=== PATIENT | male | born 1975 | race Hispanic/Latino ===

== ENCOUNTER 2021-04-20 07:52 | Emergency (ER) | payer BC ==
--- OUTSIDE RECORDS SUMMARY | 2021-04-20 07:54 | XMS REPORT | Continuity of Care Document ---
:1975 Author Organization [facility] t Address [address] [place] [address] Dr. [place] [address] [place] [id number] Care Team Providers Name Role Phone Kayden Attending Clinician Unavailable Problems This patient has no known problems. Allergies, Adverse Reactions, Alerts This patient has no known allergies or adverse reactions. Medications This patient has no known medications. Procedures This patient has no known procedures. Encounters Start End Encounter Admission Attending Care Care Encounter Source Date/Time Date/Time Type Type Clinicians Facility Department ID 2021-03-31 Outpatient PEGGY Monique [facility] [id number] [facility] 13:13:13 Viri [id number] [facility] ent Clinics 2021-03-31 Outpatient PEGGY Monique [facility] [id number] [facility] 12:24:18 Viri [id number] [facility] ent [facility] Results This patient has no known results.
[2021-04-20 08:29] LABS: Hematocrit 44.2 % (39.6-49.0); MPV 7.9 fL (7.6-11.3); RBC Red Blood Cell Count 5.19 M/uL (4.33-5.43)
[2021-04-20 08:30] LABS: Absolute Lymphocytes (CBC) 2.3 K/uL (0.7-4.9); Lymphocytes % 32.1 % (15.3-44.8)
[2021-04-20 08:36] LABS: Protime INR 1.03
[2021-04-20 08:48] LABS: Bilirubin Direct 0.1 mg/dL (0-0.2); Bilirubin Total 0.6 mg/dL (0.2-1.0); Magnesium 2.3 mg/dL (1.8-2.4); Potassium 3.7 mmol/L (3.5-5.1); Protein, Total 8.3 g/dL (6.4-8.2)
--- NOTE | 2021-04-20 09:06 | RAD REPORT ---
EXAM DESCRIPTION: CT - Head Brain Wo Cont - 04/20/2021 8:43 am CLINICAL HISTORY: elevated blood pressure;Headache COMPARISON: No comparisons TECHNIQUE: Axial 5 mm thick images of the head were obtained without IV contrast. All CT scans are performed using dose optimization technique as appropriate and may include automated exposure control or mA/KV adjustment according to patient size. FINDINGS: No intracranial hemorrhage, mass, edema or shift of mid-line structures. No acute infarcti on changes seen. No abnormal extra-axial fluid collections. Ventricles are normal. Mastoid air cells and visualized portions of the paranasal sinuses are clear. No acute bony findings. IMPRESSION: Negative non-contrast CT head examination.
[2021-04-20] MEDS ORDERED: ASPIRIN 81 MG CHEWABLE TABLET ONE (09:18)
--- NOTE | 2021-04-20 09:33 | EDPHYS ---
Physician Documentation [facility] Name: Brodie Jenkins Age: 45 yrs Sex: Male : 1975 Arrival Date: 04/20/2021 Time: 07:55 Bed 7 Private MD: ED Physician Cecilio Villatoro HPI: 04/20 08:20 This 45 yrs old Male presents to ER via Ambulatory with complaints of cp Headache, Chest Tingling. 08:20 The patient complains of pain to the top of head and forehead. The patient describes cp the headache as aching. 08:20 Onset: The symptoms/episode began/occurred 3 day(s) ago. cp 08:20 Associated signs and symptoms: Pertinent positives: chest tingling, Pertinent cp negatives: altered mental status, dizziness, fever, neck stiffness, paresthesias, sinus congestion, sinus tenderness, vision changes, vomiting, weakness. Severity of symptoms: in the emergency department the pain is unchanged, despite home interventions. 08:20 Patient thinks symptoms due to him recently discontinuing energy and work-out drinks. cp Denies any chest pain. Denies shortness of breath. Historical: - Allergies: 08:03 No Known Allergies; ap3 - Home Meds: 08:03 None [Active]; ap3 - PMHx: 08:03 None; ap3 - PSHx: 08:03 None; ap3 - Immunization history:: Client reports receiving the 2nd dose of the Covid vaccine, Flu vaccine is up to date. - Social history:: Smoking status: Patient denies any tobacco usage or history of. ROS: 08:20 Constitutional: Negative for body aches, chills, fever, poor PO intake. cp 08:20 Eyes: Negative for injury, pain, redness, and discharge. cp 08:20 Neck: Negative for pain with movement, pain at rest, stiffness. 08:20 Cardiovascular: Negative for chest pain, edema, palpitations. 08:20 Respiratory: Negative for cough, shortness of breath, wheezing. 08:20 Abdomen/GI: Negative for abdominal pain, nausea, vomiting, and diarrhea. 08:20 Neuro: Positive for headache, Negative for altered mental status, dizziness, numbness, syncope, weakness. 08:20 All other systems are negative. Exam: 08:17 ECG was reviewed by the Attending Physician. cp 08:25 Constitutional: The patient appears in no acute distress, alert, awake, cp non-diaphoretic, non-toxic, well developed, well nourished. 08:25 Head/Face: Normocephalic, atraumatic. cp 08:25 Eyes: Periorbital structures: appear normal, Pupils: equal, round, and reactive to light and accomodation, Extraocular movements: intact throughout, Conjunctiva: normal, no exudate, no injection, Lids and lashes: appear normal, bilaterally. 08:25 ENT: External ear(s): are unremarkable, Nose: is normal, Mouth: Lips: moist, Oral mucosa: pink and intact, moist, Posterior pharynx: Airway: no evidence of obstruction, patent. 08:25 Neck: ROM/movement: is normal, is supple, without pain, no range of motions limitations. 08:25 Chest/axilla: Inspection: normal, Palpation: is normal, no crepitus, no tenderness. 08:25 Cardiovascular: Rate: normal, Rhythm: regular, Heart sounds: murmur, not appreciated, Edema: is not appreciated, JVD: is not appreciated. 08:25 Respiratory: the patient does not display signs of respiratory distress, Respirations: normal, no use of accessory muscles, no retractions, labored breathing, is not present, Breath sounds: are clear throughout, no decreased breath sounds, no stridor, no wheezing. 08:25 Abdomen/GI: Inspection: abdomen appears normal, Bowel sounds: active, all quadrants, Palpation: abdomen is soft and non-tender, in all quadrants. 08:25 Back: pain, is absent, ROM is normal. 08:25 Neuro: Orientation: to person, place \T\ time. Mentation: is normal, Motor: moves all fours, strength is normal, Sensation: is normal. Vital Signs: 08:01 BP 178 / 97; Pulse 78; Resp 17; Temp 97.9; Pulse Ox 100% ; Weight 95.25 kg; Height 5 ap3 ft. 9 in. (175.26 cm); 09:18 BP 134 / 70; Pulse 66; Resp 15; Pulse Ox 98% on R/A; jl7 08:01 Body Mass Index 31.01 (95.25 kg, 175.26 cm) ap3 MDM: 08:16 Patient medically screened. cp 09:31 Data reviewed: vital signs, nurses notes, lab test result(s), EKG, radiologic studies, cp CT scan, plain films. 09:31 Differential diagnosis: intracerebral hemorrhage, migraine, subarachnoid bleed, tension cp headache, cardiac arrythmia, electrolyte abnormality. Test interpretation: by ED physician or midlevel provider: ECG, plain radiologic studies. Counseling: I had a detailed discussion with the patient and/or guardian regarding: the historical points, exam findings, and any diagnostic results supporting the discharge/admit diagnosis, lab results, radiology results, the need for outpatient follow up, a family practitioner, to return to the emergency department if symptoms worsen or persist or if there are any questions or concerns that arise at home. 04/20 08:17 Order name: Basic Metabolic Panel; Complete Time: 08:50 04/20 08:50 Interpretation: Normal except: GLUC 110; BUN 20; GFR 66. 04/20 08:17 Order name: CBC with Diff; Complete Time: 08:50 04/20 09:21 Interpretation: Reviewed. 04/20 08:17 Order name: LFT's; Complete Time: 08:50 04/20 08:51 Interpretation: Normal except: TP 8.3; GLOB 4.3; A/G 0.9. 04/20 08:17 Order name: Magnesium; Complete Time: 08:50 04/20 08:17 Order name: NT PRO-BNP; Complete Time: 08:50 04/20 08:17 Order name: PT-INR; Complete Time: 08:50 04/20 08:17 Order name: Troponin HS; Complete Time: 08:50 04/20 08:17 Order name: EKG; Complete Time: 08:17 04/20 08:17 Order name: Cardiac monitoring; Complete Time: 08:41 04/20 08:17 Order name: EKG - Nurse/Tech; Complete Time: 08:18 04/20 08:17 Order name: IV Saline Lock; Complete Time: 08:18 04/20 08:17 Order name: Labs collected and sent; Complete Time: 08:18 04/20 08:17 Order name: CT Head Brain wo Cont; Complete Time: 09:08 04/20 09:08 Interpretation: Report reviewed. 04/20 08:17 Order name: O2 Per Protocol; Complete Time: 08:41 cp 04/20 08:17 Order name: O2 Sat Monitoring; Complete Time: 08:41 cp EC:17 Rate is 76 beats/min. Rhythm is regular. [place] interval is normal. QRS interval is cp prolonged at 108 msec. QT interval is normal. T waves are Inverted in lead aVR. Interpreted by me. Reviewed by me. Administered Medications: 09:18 Drug: Aspirin Chewable Tablet 81 mg Route: PO; jl7 Disposition: 11:40 Co-signature as Attending Physician, Cecilio Villatoro MD I agree with the assessment and rn plan of care. Attestation: The patient's history, exam findings, diagnostics, and a summary of any interventions or procedures was reviewed in detail with Alex WESLEY. Disposition Summary: 04/20/21 09:32 Discharge Ordered Location: Home cp Problem: new cp Symptoms: have improved cp Condition: Stable cp Diagnosis - Headache cp - Elevated blood-pressure reading, without diagnosis of hypertension cp Followup: cp - With: Private Physician - When: 2 - 3 days - Reason: Recheck today's complaints Discharge Instructions: - Discharge Summary Sheet cp - General Headache Without Cause cp - How to Take Your Blood Pressure, [id number] cp - Aspirin and Your Heart cp - Form - Blood Pressure Record Sheet cp - Form - Excuse from Work, School, or Physical Activity cp Forms: - Medication Reconciliation Form cp - Thank You Letter cp - Antibiotic Education cp - Prescription Opioid Use cp - Work release form ic1 Signatures: Dispatcher [employer] Cecilio Serrano MD MD rn Page, Corey, PA PA cp Mercedes Holm RN RN jl7 Yazmin Kang RN RN ap3 Corrections: (The following items were deleted from the chart) 08:04 08:03 Allergies: No Known Allergies; ap3 ap3 08:04 08:03 Home Meds: None; ap3 ap3 08:04 08:03 PMHx: None; ap3 ap3 08:04 08:03 PSHx: None; ap3 ap3 08:04 08:03 PSHx: None; ap3 ap3
--- NOTE | 2021-04-20 09:33 | ER ---
Nurse's Notes [facility] Name: Brodie Jenkins Age: 45 yrs Sex: Male : 1975 Arrival Date: 04/20/2021 Time: 07:55 Bed 7 Private MD: Diagnosis: Headache;Elevated blood-pressure reading, without diagnosis of hypertension Presentation: 04/20 08:01 Chief complaint: Patient states: he has been having a headache, with intermittent left ap3 sided chest tingling since Monday04/17/2021. Patient reports just generally not feeling well, and has a suspicion he has high blood pressure. Patient also reports drinking energy drinks in the mornings, and pre-workout in the evening everyday since he was 19, however patient reports stopping "cold turkey" a few days prior to feeling this way. Coronavirus screen: At this time, the client does not indicate any symptoms associated with coronavirus-19. Ebola Screen: No symptoms or risks identified at this time. Initial Sepsis Screen: Does the patient meet any 2 criteria? No. Patient's initial sepsis screen is negative. Does the patient have a suspected source of infection? No. Patient's initial sepsis screen is negative. Risk Assessment: Do you want to hurt yourself or someone else? Patient reports no desire to harm self or others. Onset of symptoms was April 17, 2021. 08:01 Method Of Arrival: Ambulatory ap3 08:01 Acuity: DON 3 ap3 Triage Assessment: 08:04 Headache History: The patient has had previous headaches and this one is similar to ap3 previous episodes, and this one is less severe than previous episodes. General: Appears in no apparent distress. comfortable, Behavior is calm, cooperative, appropriate for age. Pain: Complains of pain in headache, left sided chest tingling Pain currently is 0 out of 10 on a pain scale. Pain began gradually, 2-3 days ago. Also complains of nausea, shortness of breath, shortness of breath accompanied the similar feelings on Monday04/17/2021. Neuro: Level of Consciousness is awake, alert, obeys commands, Oriented to person, place, time, situation, Appropriate for age Moves all extremities. Gait is steady, Speech is normal. Cardiovascular: Reports chest tingling Patient's skin is warm and dry. Respiratory: Airway is patent Respiratory effort is even, unlabored, Respiratory pattern is regular, symmetrical. Historical: - Allergies: 08:03 No Known Allergies; ap3 - Home Meds: 08:03 None [Active]; ap3 - PMHx: 08:03 None; ap3 - PSHx: 08:03 None; ap3 - Immunization history:: Client reports receiving the 2nd dose of the Covid vaccine, Flu vaccine is up to date. - Social history:: Smoking status: Patient denies any tobacco usage or history of. Screenin:06 Abuse screen: Denies threats or abuse. Nutritional screening: No deficits noted. ap3 Tuberculosis screening: No symptoms or risk factors identified. Fall Risk None identified. Assessment: 08:16 General: Appears in no apparent distress. comfortable, Behavior is calm, cooperative, ic1 appropriate for age. Pain: Complains of pain in chest. Neuro: Level of Consciousness is awake, alert, obeys commands, Oriented to person, place, time, situation. Cardiovascular: Reports chest pain, shortness of breath. Respiratory: Reports shortness of breath. GI: No deficits noted. : No deficits noted. EENT: No deficits noted. Derm: No deficits noted. Musculoskeletal: No deficits noted. Vital Signs: 08:01 BP 178 / 97; Pulse 78; Resp 17; Temp 97.9; Pulse Ox 100% ; Weight 95.25 kg; Height 5 ap3 ft. 9 in. (175.26 cm); 09:18 BP 134 / 70; Pulse 66; Resp 15; Pulse Ox 98% on R/A; jl7 08:01 Body Mass Index 31.01 (95.25 kg, 175.26 cm) ap3 ED Course: 07:55 Patient arrived in ED. rg4 08:03 Triage completed. ap3 08:06 Arm band placed on right wrist. ap3 08:07 Patient has correct armband on for positive identification. Placed in gown. Bed in low ap3 position. Call light in reach. Side rails up X 1. Adult w/ patient. security monitor on. Pulse ox on. NIBP on. Door closed. Noise minimized. 08:10 Alex Mcqueen PA is PHCP. cp 08:10 Cecilio Villatoro MD is Attending Physician. cp 08:14 EKG done, by ED staff, reviewed by Alex WESLEY. ap3 08:16 No provider procedures requiring assistance completed. Inserted saline lock: 20 gauge ic1 in left antecubital area, using aseptic technique. Blood collected. 08:43 CT Head Brain wo Cont In Process Unspecified. EDMS 09:43 IV discontinued, intact, bleeding controlled, No redness/swelling at site. Pressure ic1 dressing applied. Administered Medications: 09:18 Drug: Aspirin Chewable Tablet 81 mg Route: PO; jl7 Outcome: 09:32 Discharge ordered by . cp 09:43 Discharged to home ambulatory, with significant other. ic1 09:43 Condition: stable 09:43 Discharge instructions given to patient, Instructed on discharge instructions, follow up and referral plans. Demonstrated understanding of instructions, follow-up care. 09:47 Patient left the ED. ic1 Signatures: Dispatcher [employer] EDMS Alex Mcqueen PA PA cp Garcia, Rubi rg4 Mercedes Holm RN RN jl7 Yazmin Kang RN RN ap3 Oneida Neal RN RN ic1 Corrections: (The following items were deleted from the chart) 08:04 08:03 Allergies: No Known Allergies; ap3 ap3 08:04 08:03 Home Meds: None; ap3 ap3 08:04 08:03 PMHx: None; ap3 ap3 08:04 08:03 PSHx: None; ap3 ap3 08:04 08:03 PSHx: None; ap3 ap3
[2021-04-20 10:01] VITALS: TEMP 97.9
[2021-04-20 10:03] VITALS: BP 134/70; O2SAT 98
--- NOTE | 2021-04-21 11:17 | EKG ---
Test Date: 2021-04-20 Test Time: 08:14:46 Foundry Technician: ALP MEASUREMENT RESULTS: Intervals: Rate: 76 CO: 176 QRSD: 108 QT: 354 QTc: 398 [place]: P: 36 CO: 176 QRS: -4 T: 16 INTERPRETIVE STATEMENTS: Normal sinus rhythm Normal ECG No previous ECG available for comparison Electronically Signed On 04-21-21 11:13:55 THEATER EDUCATION TEACHER by Zeke Martinez
== END 2021-04-20 09:47 | disposition home or self-care (01) ==
LOC: ER 07:52
DX: R51.9 Headache, unspecified (principal); R03.0 Elevated blood-pressure reading, without diagnosis of hypertension
CPT/HCPCS: 36415; 70450; 80048; 80076; 83735; 83880; 84484; 85025; 85610; 93005; 99284

== ENCOUNTER 2022-10-11 15:56 | Emergency (ER) | payer BC ==
--- OUTSIDE RECORDS SUMMARY | 2022-10-11 15:59 | XMS REPORT | Continuity of Care Document ---
:1975 Author Organization [facility] t Address [address] [place] [address] Care Team Providers Name Role Phone Kayden Viri Attending Clinician Unavailable KEANUMonday Attending Clinician Unavailable IGLESIA LEDEZMA Attending Clinician Unavailable Iglesia Ledezma DO Attending Clinician Payers Payer Name Policy Type Policy Number Effective Date Expiration Date S [facility] 2 [id number] 2021 00:00:00 Problems This patient has no known problems. Allergies, Adverse Reactions, Alerts This patient has no known allergies or adverse reactions. Medications This patient has no known medications. Procedures This patient has no known procedures. Encounters Start End Encounter Admission Attending Care Care Encounter Source Date/Time Date/Time Type Type Clinicians Facility Department ID 2022-10-10 [facility] [id number] 08:17:00 Viri [id number] [facility] 2021-03-31 [facility] [id number] Common 13:13:13 Viri [id number] [facility] 2021-03-31 Outpatient PEGGY Monique [facility] [id number] Common 12:24:18 Viri [id number] [facility] 2022-05-06 2022-05-06 Outpatient GARRY BEDOYA [id number] Garry 11:15:00 11:15:00 MONDAY Seybol d 2022-05-02 2022-05-02 Outpatient GARRY LEDEZMA [id number] Garry 16:30:00 16:30:00 IGLESIA Barajasybol maxime 2022-01-07 2022-01-07 Outpatient GARRY LEDEZMA [id number] Garry 09:00:00 09:00:00 IGLESIA Seybol d 2021-10-11 2021-10-11 Office Mikael Ledezma [id number] Garry 14:45:00 15:15:00 Visit Iglesia Pena [id number] [place] [id number] Results This patient has no known results.
[2022-10-11 17:13] LABS: Absolute Lymphocytes (CBC) 1.8 K/uL (0.7-4.9); Hematocrit 42.4 % (39.6-49.0); Lymphocytes % 22.5 % (15.3-44.8); MPV 7.6 fL (7.6-11.3); Platelets 277 thou/uL (152-406); RBC Red Blood Cell Count 4.99 M/uL (4.33-5.43)
--- NOTE | 2022-10-11 17:14 | RAD REPORT ---
EXAM DESCRIPTION: Gladis Single View10/11/2022 4:51 pm CLINICAL HISTORY: CHEST PAIN COMPARISON: No comparisons TECHNIQUE: Portable AP view of the chest. FINDINGS: The lungs are clear. No pneumothorax or effusion. The cardiomediastinal contours are unrem arkable. IMPRESSION: No acute cardiopulmonary process.
[2022-10-11 17:35] LABS: Potassium 3.8 mEq/L (3.5-5.1); Troponin High Sensitivity 4.7 pg/mL (<58.9)
--- NOTE | 2022-10-11 17:56 | RAD REPORT ---
EXAM DESCRIPTION: CT - Angio Aorta For Dissection - 10/11/2022 5:20 pm CLINICAL HISTORY: chest pain, HTN, radiates to left arm COMPARISON: Chest Single View dated 10/11/2022 TECHNIQUE: Dynamically enhanced 3 mm thick images of the chest, abdomen, and pelvis were obtained du ring administration of approximately 100mL Isovue 370 IV contrast. Sagittal and coronal reconstructio ns as well as maximal intensity projection reconstruction were generated and reviewed per an aortic a ngiography protocol. All CT scans are performed using dose optimization technique as appropriate and may include automated exposure control or mA/KV adjustment according to patient size. FINDINGS: Aorta is normal in diameter with no dissection or other acute aortic findings. Reconstruct ion images show no significant findings. Pulmonary arteries are normal as well. No mass or infiltrate in the lung parenchyma. No pleural thickening, pleural effusion or pneumothorax . No abnormal mediastinal or hilar mass or lymphadenopathy seen. No chest wall mass or abnormal axillar y lymphadenopathy. Celiac, SMA and renal arteries show no suspicious findings. Diffuse hepatic parenchymal hypoattenuation suggesting steatosis. Other solid organs show no suspicio us abnormality. No mass or abnormal lymphadenopathy. IMPRESSION: No acute abnormalities on CT angiogram of the aorta. Diffuse hepatic steatosis. No other significant findings on chest, abdomen and pelvis examination.
--- NOTE | 2022-10-11 20:07 | EDPHYS ---
Physician Documentation [facility] Name: Brodie Jenkins Age: 46 yrs Sex: Male : 1975 Arrival Date: 10/11/2022 Time: 15:56 Bed 7 Private MD: ED Physician Cecilio Villatoro HPI: 10/11 16:27 This 46 yrs old Male presents to ER via EMS with complaints of Chest Pain. rn 16:27 The patient or guardian reports chest pain that is located primarily in the anterior rn chest wall, sternal. Onset: just prior to arrival. The pain does not radiate. Associated signs and symptoms: Pertinent negatives: abdominal pain, cough, diaphoresis, dizziness, lower extremity swelling, palpitations, shortness of breath, syncope, vomiting. The chest pain is described as sharp, stabbing. Duration: The patient or guardian reports a single episode, that is now resolved. Modifying factors: The symptoms are alleviated by nothing. the symptoms are aggravated by nothing. Severity of pain: At its worst the pain was moderate in the emergency department the pain has improved. The patient has not experienced similar symptoms in the past. Pt reports peristernal chest pain, sharp/stabbing, not worse with breathing. No fever/cough/trauma/abd pain/diaphoresis. No recent surgery. No hx of dvt/PE. . Historical: - Allergies: 16:02 No Known Allergies; me1 - Home Meds: 16:02 None [Active]; me1 - PMHx: 16:02 None; me1 - PSHx: 16:02 right index finger; me1 - Immunization history:: Adult Immunizations up to date. - Social history:: Smoking status: Patient denies any tobacco usage or history of. - Family history:: not pertinent. - Hospitalizations: : No recent hospitalization is reported. ROS: 16:27 Constitutional: Negative for fever, chills, and weight loss, Cardiovascular: Negative rn for palpitations, and edema, Respiratory: Negative for shortness of breath, cough, wheezing, and pleuritic chest pain, Abdomen/GI: Negative for abdominal pain, nausea, vomiting, diarrhea, and constipation, Back: Negative for injury and pain, MS/Extremity: Negative for injury and deformity, Skin: Negative for injury, rash, and discoloration, Neuro: Negative for headache, weakness, numbness, tingling, and seizure. Exam: 16:27 Constitutional: This is a well developed, well nourished patient who is awake, alert, rn and in no acute distress. Head/Face: Normocephalic, atraumatic. Chest/axilla: Normal chest wall appearance and motion. Nontender with no deformity. No lesions. Cardiovascular: Regular rate and rhythm. No pulse deficits. Respiratory: No increased work of breathing, no retractions or nasal flaring. Abdomen/GI: Soft, non-tender Skin: Warm, dry MS/ Extremity: Pulses equal, no cyanosis. Neuro: Awake and alert, GCS 15 Vital Signs: 16:00 BP 179 / 103; Pulse 86; Resp 16; Temp 98.6(O); Pulse Ox 95% on R/A; Weight 97.52 kg; me1 Height 5 ft. 9 in. ; Pain 0/10; 17:01 BP 160 / 104; Pulse 78; Resp 18; Pulse Ox 98% on R/A; ph 17:57 BP 166 / 97; Pulse 76; Resp 18; Pulse Ox 98% on R/A; ld1 18:58 BP 164 / 101; Pulse 74; Resp 18; Pulse Ox 96% on R/A; ld1 20:00 BP 181 / 101; Pulse 73; Resp 16; Pulse Ox 98% on R/A; jb4 16:00 Body Mass Index 31.75 (97.52 kg, 175.26 cm) me1 16:00 Pain Scale: Adult me1 MDM: 16:03 Patient medically screened. rn 17:57 Differential diagnosis: acute myocardial infarction, acute pericarditis, coronary rn artery disease costochondritis, esophagitis, gastritis, pleurisy, pneumothorax, thoracic aortic disection. Data reviewed: vital signs, nurses notes, lab test result(s), EKG, radiologic studies, CT scan, plain films, and as a result, I will discharge patient. Counseling: I had a detailed discussion with the patient and/or guardian regarding: the historical points, exam findings, and any diagnostic results supporting the discharge/admit diagnosis, lab results, radiology results, the need for outpatient follow up, to return to the emergency department if symptoms worsen or persist or if there are any questions or concerns that arise at home. Special discussion: Based on the patient's history, exam, and Dx evaluation, there is no indication for emergent intervention or inpatient Tx. It is understood by the patient/guardian that if the Sx's persist or worsen they need to return immediately for re-evaluation. I discussed with the patient/guardian in detail that at this point there is no indication for admission to the hospital. It is understood, however, that if the symptoms persist or worsen the patient needs to return immediately for re-evaluation. 20:05 Differential diagnosis: viral Infection, bacterial infection, bronchitis, pneumonia cp acute DE, AAA. 20:05 I considered the following discharge prescriptions or medication management in the cp emergency department Medications were administered in the Emergency Department. See MAR. 20:05 ED course: repeat troponin negative. VS noted with elevated blood pressure. Will cp discharge to home for continued monitoring. 10/11 16:03 Order name: Basic Metabolic Panel; Complete Time: 17:43 rn 10/11 16:03 Order name: CBC with Diff; Complete Time: 17:43 rn 10/11 16:03 Order name: NT PRO-BNP; Complete Time: 17:43 rn 10/11 16:03 Order name: Troponin HS; Complete Time: 17:43 rn 10/11 17:58 Order name: Troponin High Sensitivity; Complete Time: 20:05 rn 10/11 17:58 Order name: CREATININE WHOLE BLOOD; Complete Time: 20:05 EDMS 10/11 16:03 Order name: XRAY Chest (1 view); Complete Time: 17:26 rn 10/11 16:12 Order name: CT Aorta for Dissection; Complete Time: 17:57 rn 10/11 16:03 Order name: EKG; Complete Time: 16:04 rn 10/11 16:03 Order name: Cardiac monitoring; Complete Time: 16: rn 10/11 16:03 Order name: EKG - Nurse/Tech; Complete Time: 16:19 rn 10/11 16:03 Order name: IV Saline Lock; Complete Time: 16:19 rn 10/11 16:03 Order name: Labs collected and sent; Complete Time: 16:19 rn 10/11 16:03 Order name: O2 Per Protocol; Complete Time: 16:07 rn 10/11 16:03 Order name: O2 Sat Monitoring; Complete Time: 16: rn 10/11 16:35 Order name: Labs - recollect needed: recollect green and lavender top; Complete Time: bd 17:09 Administered Medications: No medications were administered Disposition Summary: 10/11/22 20:06 Discharge Ordered Location: Home cp Problem: new cp Symptoms: have improved cp Condition: Stable cp Diagnosis - Chest pain, unspecified cp - Elevated blood-pressure reading, without diagnosis of hypertension cp Followup: cp - With: Sebas Ivan MD - When: 2 - 3 days - Reason: Recheck today's complaints Discharge Instructions: - Discharge Summary Sheet cp - Nonspecific Chest Pain, Adult cp - Aspirin and Your Heart cp - Form - Blood Pressure Record Sheet cp - How to Take Your Blood Pressure cp Forms: - Medication Reconciliation Form cp - Thank You Letter cp - Antibiotic Education cp - Prescription Opioid Use cp - Patient Portal Instructions cp Signatures: Dispatcher [employer] Dasha Zimmerman Roman, MD MD rn Alex Mcqueen PA PA cp Flavia Adamson, RN RN me1
--- NOTE | 2022-10-11 20:07 | ER ---
Nurse's Notes [facility] Name: Brodie Jenkins Age: 46 yrs Sex: Male : 1975 Arrival Date: 10/11/2022 Time: 15:56 Bed 7 Private MD: Diagnosis: Chest pain, unspecified;Elevated blood-pressure reading, without diagnosis of hypertension Presentation: 10/11 16:00 Chief complaint: Patient states: chest pain. Coronavirus screen: Vaccine status: me1 Patient reports receiving the 2nd dose of the covid vaccine. At this time, the client does not indicate any symptoms associated with coronavirus-19. Ebola Screen: No symptoms or risks identified at this time. Initial Sepsis Screen: Does the patient meet any 2 criteria? No. Patient's initial sepsis screen is negative. Does the patient have a suspected source of infection? No. Patient's initial sepsis screen is negative. Risk Assessment: Do you want to hurt yourself or someone else? Patient reports no desire to harm self or others. Onset of symptoms was October 11, 2022. 16:00 Method Of Arrival: EMS: [facility] [place] 16:00 Acuity: DON 3 me1 Triage Assessment: 16:02 General: Appears comfortable, well groomed, well developed, well nourished, Behavior is me1 calm, cooperative, appropriate for age, Reports chest pain that was sharp, midsternal, while sitting at his desk working. Chest pain did not radiate. Chest pain has resolved at this time. Denies sob. Denies fever, feeling ill, fatigue, chills. Pain: Denies pain. Pain: Complains of pain in chest Pain does not radiate. Pain at worst was 4 out of 10 on a pain scale. Quality of pain is described as sharp, Pain began suddenly, Is intermittent. Neuro: Level of Consciousness is awake, alert, obeys commands, Oriented to person, place, time, situation, Appropriate for age. Cardiovascular: Capillary refill < 3 seconds Patient's skin is warm and dry. Respiratory: Respiratory effort is even, unlabored, Respiratory pattern is regular, symmetrical. Historical: - Allergies: 16:02 No Known Allergies; me1 - Home Meds: 16:02 None [Active]; me1 - PMHx: 16:02 None; me1 - PSHx: 16:02 right index finger; me1 - Immunization history:: Adult Immunizations up to date. - Social history:: Smoking status: Patient denies any tobacco usage or history of. - Family history:: not pertinent. - Hospitalizations: : No recent hospitalization is reported. Screenin:05 [facility] ED Fall Risk Assessment (Adult) Score/Fall Risk Level 0 - 2 = Low Risk. Abuse me1 screen: Denies threats or abuse. Nutritional screening: No deficits noted. Tuberculosis screening: No symptoms or risk factors identified. Assessment: 16:05 General: See triage assessment. . Pain: Denies pain. me1 17:57 Reassessment: Patient appears in no apparent distress at this time. No changes from ld1 previously documented assessment. Patient and/or family updated on plan of care and expected duration. Pain level reassessed. Patient is alert, oriented x 3, equal unlabored respirations, skin warm/dry/pink. 18:58 Reassessment: Patient appears in no apparent distress at this time. No changes from ld1 previously documented assessment. Patient and/or family updated on plan of care and expected duration. Pain level reassessed. Patient is alert, oriented x 3, equal unlabored respirations, skin warm/dry/pink. 19:15 Reassessment: Patient appears in no apparent distress at this time. Patient and/or jb4 family updated on plan of care and expected duration. Pain level reassessed. Patient is alert, oriented x 3, equal unlabored respirations, skin warm/dry/pink. 20:20 Reassessment: Patient appears in no apparent distress at this time. Patient and/or jb4 family updated on plan of care and expected duration. Pain level reassessed. Patient is alert, oriented x 3, equal unlabored respirations, skin warm/dry/pink. Vital Signs: 16:00 BP 179 / 103; Pulse 86; Resp 16; Temp 98.6(O); Pulse Ox 95% on R/A; Weight 97.52 kg; me1 Height 5 ft. 9 in. ; Pain 0/10; 17:01 BP 160 / 104; Pulse 78; Resp 18; Pulse Ox 98% on R/A; ph 17:57 BP 166 / 97; Pulse 76; Resp 18; Pulse Ox 98% on R/A; ld1 18:58 BP 164 / 101; Pulse 74; Resp 18; Pulse Ox 96% on R/A; ld1 20:00 BP 181 / 101; Pulse 73; Resp 16; Pulse Ox 98% on R/A; jb4 16:00 Body Mass Index 31.75 (97.52 kg, 175.26 cm) me1 16:00 Pain Scale: Adult me1 ED Course: 15:57 Patient arrived in ED. ld1 16:02 Triage completed. me1 16:02 Arm band placed on Patient placed in an exam room. me1 16:03 Cecilio Villatoro MD is Attending Physician. rn 16:05 Patient has correct armband on for positive identification. Bed in low position. Call me1 light in reach. Side rails up X 1. Provided Education on: POC. Verbalized understanding. . Client placed on continuous cardiac and pulse oximetry monitoring. NIBP monitoring applied. behavioral health associate on. 16:05 No provider procedures requiring assistance completed. Patient maintains SpO2 me1 saturation greater than 95% on room air. 16:22 Flavia Adamson RN is Primary Nurse. me1 16:22 Inserted saline lock: 20 gauge in right antecubital area, using aseptic technique. me1 16:53 XRAY Chest (1 view) In Process Unspecified. EDMS 17:09 Inserted saline lock: 20 gauge in left antecubital area, using aseptic technique. Blood ld1 collected. 17:22 CT Aorta for Dissection In Process Unspecified. EDMS 18:04 Alex Mcqueen PA is PHCP. cp 20:06 Sebas Ivan MD is Referral Physician. cp 20:21 IV discontinued, intact, bleeding controlled, No redness/swelling at site. Pressure jb4 dressing applied. Administered Medications: No medications were administered Medication: 16:05 VIS not applicable for this client. me1 Outcome: 20:06 Discharge ordered by . cp 20:21 Discharged to home ambulatory, with friend. jb4 20:21 Condition: stable 20:21 Discharge instructions given to patient, Instructed on discharge instructions, follow up and referral plans. Demonstrated understanding of instructions, follow-up care. 20:22 Patient left the ED. jb4 Signatures: Dispatcher [employer] EDWV Cecilio Villatoro MD MD rn Hall, Patricia, RN RN Alex Mcqueen PA PA cp Aditya Servin RN RN jb4 Zeny Muñoz RN RN ld1 Flavia Adamson, RN RN me1
[2022-10-11 20:55] VITALS: TEMP 98.6
[2022-10-11 21:03] VITALS: BP 181/101; O2SAT 98
--- NOTE | 2022-10-12 18:08 | EKG ---
Test Date: 2022-10-11 Test Time: 16:17:50 Marriage Counselor: Betty ORELLANA MEASUREMENT RESULTS: Intervals: Rate: 75 ND: 174 QRSD: 88 QT: 376 QTc: 419 [place]: P: 65 ND: 174 QRS: 14 T: -5 INTERPRETIVE STATEMENTS: Normal sinus rhythm Normal ECG Compared to ECG 04/20/2021 08:14:46 No significant changes Electronically Signed On 10-12-22 18:07:17 CDT by Sebas Ivan
== END 2022-10-11 20:22 | disposition home or self-care (01) ==
LOC: ER 15:56
DX: R07.9 Chest pain, unspecified (principal); R03.0 Elevated blood-pressure reading, without diagnosis of hypertension
CPT/HCPCS: 85025; 80048; 36415; 82565; 84484 ×2; 83880; 71275; 74175; 71045; Q9967; 93005